=== PATIENT | female | born 1970 | race Caucasian/White ===

== ENCOUNTER → 2017-07-01 | Emergency (ER) | payer OTHER ==
[~2017-07-01] VITALS: Ht 162.6 cm; Wt 63.5 kg
== END | disposition home or self-care (01) ==
LOC: ER 14:08
DX: J11.1 Influenza due to unidentified influenza virus with other respiratory manifestations (principal); J32.8 Other chronic sinusitis

== ENCOUNTER 2018-12-15 05:20 | Day surgery (SDC) | payer OTHER ==
[2018-12-15] MEDS ORDERED: PERCOCET 5-3251 EACH PO (12:15)
[2018-12-15] MEDS ORDERED: RECTICARE30 GM TOP (12:15)
== END 2018-12-15 15:20 | disposition home or self-care (01) ==
LOC: CIR.AMB 05:20
DX: K64.4 Residual hemorrhoidal skin tags (principal); K64.8 Other hemorrhoids